=== PATIENT | female | born 1985 | race Caucasian/White ===

== ENCOUNTER 2016-12-09 08:41 | Inpatient (IN) | payer BC ==
[~2016-12-09 08:41] MED LIST: Buffered Lidocaine 1% SYRIN* 3 ML/SYR SYRINGE INTRADERM ONE; HYDROcodone/ACETAMIN 5-325 MG* 1 TAB PO PRN; Nalbuphine* 20 MG/ML 1 ML VIAL IV PRN; Naloxone* 0.4 MG/ML 1 ML VIAL IV PRN; Ondansetron INJ* 2 MG/ML VIAL IV PRN; PROCHLORPERAZINE INJ 5 MG/ML 2 ML VIAL IV PRN; Scopolamine 1.5 mg* PATCH TRANSDERM PRN; Scopolomine PATCH Remove* 1 NOTE MISC PATCH OFF PRN; Sodium Citrate/Citric Acid* 15 ML UDC PO ONE; ceFOXitin 2 GM IVPREMIX* 2 GM/50 ML BAG IVPB ONE
[2016-12-09] MEDS ORDERED: Ketorolac INJ* 30 MG/ML 1 ML VIAL IV SCH (09:00)
[2016-12-09] MEDS ORDERED: Famotidine IV* 10 MG/ML 2 ML (20 mg) ONE (09:39)
[2016-12-09] MEDS ORDERED: Ondansetron INJ* 2 MG/ML VIAL ONE ×2 (09:39→10:38)
[2016-12-09] MEDS ORDERED: Morphine PF AMP (0.5MG/ML)* 5 MG/10 ML AMP ONE (09:39)
[2016-12-09] MEDS ORDERED: diPHENhydraMINE IV* 50 MG/ML 1 ml VIAL (BENADRYL) ONE (10:35)
[2016-12-09] MEDS ORDERED: Phenylephrine IV* 40 MCG/ML 10 ML SYRINGE ONE (10:35)
[2016-12-09] MEDS ORDERED: EPHEDrine (Pressors)* 50 MG/ML VIAL ONE (10:35)
[2016-12-09] MEDS ORDERED: Ketorolac INJ* 30 MG/ML 1 ML VIAL ONE (10:55)
[2016-12-09] MEDS ORDERED: fentaNYL* 50 MCG/ML 2 ML VIAL (100 MCG VIAL) ONE (11:11)
[2016-12-09] MEDS ORDERED: Acetaminophen TAB* 325 MG PO PRN (11:19)
[2016-12-09] MEDS ORDERED: Dibucaine 1% 28.35 GM TUBE PR PRN (11:19)
[2016-12-09] MEDS ORDERED: Zolpidem TAB* 5 MG PO PRN (11:19)
[2016-12-09] MEDS ORDERED: Witch Hazel PAD* JAR TOPICAL PRN (11:19)
[2016-12-09] MEDS ORDERED: Glycerin ADULT SUPP PR PRN (11:19)
[2016-12-09] MEDS ORDERED: Oxytocin in LR* 20 UNITS/1,000 ML BAG IVPB SCH (12:00)
[2016-12-09] MEDS: Simethicone CHEW TAB* 80 MG PO SCH ×3 (13:07→21:13)
[2016-12-09] MEDS: Acetaminophen TAB* 325 MG PO SCH ×4 (13:08→21:13)
--- NOTE | 2016-12-09 14:01 | OP ---
AMENDED REPORT NOW INCLUDES DATE OF OPERATION - ESIGNED BEFORE ADJUSTMENT * DATE OF OPERATION: 12/09/16 - ROOM #[id number] DATE OF : 85 SURGEON: Alessandro Jean-Baptiste MD. WASH BOX OPERATOR: Mary Castro CNM ANESTHESIOLOGIST: Dr. Guerrier ANESTHESIA: Spinal PRE-OP DIAGNOSES: Twin with baby A breech, also desires permanent sterilization. POST-OP DIAGNOSES: Twin with baby A breech, also desires permanent sterilization. OPERATIVE PROCEDURE: Low transverse section, bilateral tubal ligation. COMPLICATIONS: None. FINDINGS: This is a 31-year-old 2 para 1 who presents at 38 weeks with twins first baby breech for elective section and tubal ligation. At the time of , she had a viable female, Apgars 9 and 9, baby A was 5 pounds 12 ounces, Apgars 9 and 9 and was a girl, baby B was a boy, 6 pounds 10 ounces with vertex and Apgars were 9 and 9 as well. Both tubes and ovaries appeared normal. DESCRIPTION OF PROCEDURE: The patient identified and procedure identified as a low transverse section. The patient was taken to the operating room and prepped and draped in the usual fashion in the left lateral recumbent position under spinal anesthesia. A Pfannenstiel incision was made in the abdomen, carried down through fat, fascia and peritoneum. A transverse incision was made in the low uterine segment, extended laterally using blunt dissection. The first baby was in the breech position; this was brought out first in a ryan manner and then, once the feet were grasped, it was extracted in the usual breech extraction manner without difficulty. Cord was doubly clamped and cut and the infant was handed to the awaiting graduate civil engineer. The second baby was brought down into the incision with manipulation, vertex, artificial rupture of membranes was done on the membranes. Baby was brought into the incision. At first attempt, the baby was not delivered through the incision, so the vacuum was applied and with the vacuum the baby did not deliver without any further difficulty. Cord was doubly clamped and cut and the was handed to the awaiting graduate civil engineer. Cord blood was obtained for both babies. Placenta delivered spontaneously. The uterus was wiped out with a wet lap sponge. The uterus was brought out into the abdomen. The uterine incision was closed using 0-Polysorb in a running fashion. The second layer was used to imbricate the first layer. The right fallopian tube was grasped at the fimbriated ends and ligated x2 and the fimbriae was excised. Same procedure was carried out at left after following it out to its fimbriated ends. Good hemostasis was verified. The uterus was placed back into the abdominal cavity. The tubal ligation sites were inspected and found to be hemostatic. The gutters were wiped out with a wet lap sponge. The peritoneum was then closed using 3-0 Polysorb in a running fashion. Good hemostasis achieved in the subrectus layers. The fascia was closed using 0 Polysorb in a running fashion. Hemostasis was achieved in the subcu. Copious irrigation was utilized and suctioned out. The skin was closed with 4-0 Monocryl in a subcuticular fashion. Skin glue was applied to the incision as there was hair that would not allow the Steri-strips to be applied. All sponge and instrument counts were correct and the patient returned to the recovery room in stable condition. [id number]/[facility] #: [id number] [facility]
[2016-12-09] MEDS: Docusate CAP* 100 MG PO SCH ×2 (16:00→21:13)
[2016-12-09] MEDS: diPHENhydraMINE IV* 50 MG/ML 1 ml VIAL (BENADRYL) IV PRN ×2 (16:00→23:57)
[2016-12-09] MEDS: Ketorolac INJ* 30 MG/ML 1 ML VIAL IV SCH ×2 (17:41→23:35)
[2016-12-10] MEDS ORDERED: oxyCODONE/Acetamin 5/325 MG* TAB PO PRN ×2
[2016-12-10] MEDS ORDERED: Acetaminophen TAB* 325 MG PO PRN (01:00)
[2016-12-10] MEDS: Acetaminophen TAB* 325 MG PO SCH (05:22)
[2016-12-10] MEDS: Ketorolac INJ* 30 MG/ML 1 ML VIAL IV SCH (06:30)
[2016-12-10 08:29] LABS: Hematocrit 35 % (35-47); Hemoglobin 11.8 g/dl (12.0-16.0); Mean Corpuscular HGB Conc 34 g/dl (31-36); Mean Corpuscular Hemoglobin 32 pg (27-31); Mean Corpuscular Volume 95 fL (80-97); Mean Platelet Volume 11 um3 (7.4-10.4); Red Blood Count 3.71 10^6/ul (4.0-5.4); Red Cell Distribution Width 14 % (10.5-15); White Blood Count 8.8 10^3/ul (3.5-10.8)
[2016-12-10] MEDS ORDERED: Ferrous Gluconate TAB* 324 MG TAB PO SCH (09:00)
[2016-12-10] MEDS: Docusate CAP* 100 MG PO SCH ×3 (09:30→22:06)
[2016-12-10] MEDS: Simethicone CHEW TAB* 80 MG PO SCH ×4 (09:30→19:47)
[2016-12-10] MEDS: Ibuprofen TAB* 600 MG PO PRN ×2 (12:37→18:28)
[2016-12-11 08:17] VITALS: BP 126/70
[2016-12-11] MEDS: Docusate CAP* 100 MG PO SCH (09:51)
[2016-12-11] MEDS: Simethicone CHEW TAB* 80 MG PO SCH (09:52)
[2016-12-11 10:05] LABS: Hematocrit 36 % (35-47); Hemoglobin 12.2 g/dl (12.0-16.0); Mean Corpuscular HGB Conc 34 g/dl (31-36); Mean Corpuscular Hemoglobin 32 pg (27-31); Mean Corpuscular Volume 94 fL (80-97); Mean Platelet Volume 10 um3 (7.4-10.4); Red Blood Count 3.78 10^6/ul (4.0-5.4); Red Cell Distribution Width 14 % (10.5-15); White Blood Count 7.9 10^3/ul (3.5-10.8)
[2016-12-11] MEDS: Ibuprofen TAB* 600 MG PO PRN (11:51)
== END 2016-12-11 13:00 | disposition home or self-care (01) | DRG 540 ==
LOC: MCHOB 08:41
PROVIDERS: ADMIT Obstetrics & Gynecology; ATTEND Obstetrics & Gynecology
PROC: 0UB70ZZ Excision of Bilateral Fallopian Tubes, Open Approach (ICD-10-PCS; 2016-12-09)
PROC: 10D00Z1 Extraction of Products of Conception, Low, Open Approach (ICD-10-PCS; principal; 2016-12-09 10:45)
DX: O32.1XX1 Maternal care for breech presentation, fetus 1 (principal); O30.003 Twin pregnancy, unspecified number of placenta and unspecified number of amniotic sacs, third trimester; Z37.2 Twins, both liveborn; Z3A.38 38 weeks gestation of pregnancy
CPT/HCPCS: 36415; 85025; A9270-GY; J0694; J1200; J1885; J2405; J3010

== ENCOUNTER 2017-11-20 14:00 | Emergency (ER) | payer BC ==
[2017-11-20 14:37] VITALS: BP 118/52
--- NOTE | 2017-11-20 15:03 | UC ---
Throat Pain/Nasal Rex HPI - HPI Summary HPI Summary: Hoarseness, runny nose, cough, congestion for about a week. 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 Denies fever or marked ST. - History of Current Complaint Chief Complaint: UCRespiratory Stated Complaint: SORE THROAT, FATIGUE Time Seen by Provider: 11/20/17 14:31 Hx Obtained From: Patient Hx Last Menstrual Period: 03/2016- ?: No Onset/Duration: Gradual Onset, Lasting Days Severity: Moderate Pain Intensity: 0 Cough: Nonproductive Associated Signs & Symptoms: Positive: Hoarseness, Nasal Discharge. Negative: Fever, Vomiting - Allergies/Home Medications Allergies/Adverse Reactions: Allergies Allergy/AdvReac Type Severity Reaction Status Date / Time No Known Allergies Allergy Verified 11/20/17 14:37 PMH/Surg Hx/FS Hx/Imm Hx Previously Healthy: Yes - Surgical History Surgical History: Yes Surgery Procedure, Year, and Place: wisdom teeth. 11 MONTHS AGO - Family History Known Family History: Positive: None - Social History Occupation: Employed Full-time Lives: With Family Alcohol Use: None Substance Use Type: None Smoking Status (MU): Never Smoked Tobacco Have You Smoked in the Last Year: No - Immunization History Most Recent Influenza Vaccination: 05/26/16 Most Recent Pneumonia Vaccination: none Vaccination Up to Date: Yes Review of Systems Constitutional: Negative Skin: Negative Eyes: Negative ENT: Sore Throat, Nasal Discharge Respiratory: Cough Cardiovascular: Negative Gastrointestinal: Negative Genitourinary: Negative Motor: Negative Neurovascular: Negative Musculoskeletal: Negative Neurological: Negative Psychological: Negative Is Patient Immunocompromised?: No All Other Systems Reviewed And Are Negative: Yes Physical Exam Triage Information Reviewed: Yes Appearance: Well-Appearing, No Pain Distress, Well-Nourished Vital Signs: Initial Vital Signs Temp 97.7 F 11/20/17 14:34 Pulse 66 11/20/17 14:34 Resp 14 11/20/17 14:34 BP 118/52 11/20/17 14:34 Pulse Ox 100 11/20/17 14:34 Vital Signs Reviewed: Yes Eye Exam: Normal Eyes: Positive: Conjunctiva Clear ENT: Positive: Hearing grossly normal, Pharynx normal, Nasal congestion, TMs normal, Hoarse voice. Negative: Tonsillar swelling, Tonsillar exudate Dental Exam: Normal Neck exam: Normal Neck: Positive: Supple, Nontender, No Lymphadenopathy Respiratory Exam: Normal Respiratory: Positive: Chest non-tender, Lungs clear, Normal breath sounds, No respiratory distress, No accessory muscle use Cardiovascular Exam: Normal Cardiovascular: Positive: RRR, No Murmur Musculoskeletal Exam: Normal Neurological Exam: Normal Neurological: Positive: Alert Psychological Exam: Normal Skin Exam: Normal Throat Pain/Nasal Course/Dx - Course Course Of Treatment: RST negative - Differential Dx/Diagnosis Provider Diagnoses: URI, likely viral Discharge - Sign-Out/Discharge Documenting (check all that apply): Discharge - Discharge Plan Condition: Stable Disposition: HOME Patient Education Materials: Upper Respiratory Infection (ED) Referrals: Edouard Suarez DO [Primary Care Provider] - Additional Instructions: Strep test negative. I expect your viral symptoms to start to go down markedly within a few days. See your primary care provider or return here if you develop new pain, fever, or trouble breathing. - Billing Disposition and Condition Condition: STABLE Disposition: HOME
== END 2017-11-20 15:16 | disposition home or self-care (01) ==
LOC: UCEAST 14:00
DX: J06.9 Acute upper respiratory infection, unspecified (principal)
CPT/HCPCS: 87651; 99211; G0463